=== PATIENT | female | born 1985 | race Hispanic/Latino ===

== ENCOUNTER 2016-06-21 13:18 | Emergency (ER) | payer SELFPAY ==
[2016-06-21 13:31] VITALS: BP 114/78; PULSE 68; RESP 16; TEMP 98; O2SAT 100
--- NOTE | 2016-06-21 13:44 | ED PDOC ---
Lower Extremity Pain/Injury Time Seen by Provider: 06/21/16 13:41 Chief Complaint (Nursing): Lower Extremity Problem/Injury Chief Complaint (Provider): Left Knee Pain History Per: Patient History/Exam Limitations: no limitations Onset/Duration Of Symptoms: Days (x2) Current Symptoms Are (Timing): Still Present Severity: Mild Additional Complaint(s): Patient is a 30 year old female, who was diagnosed with left knee cellulitis 2 days ago, presents to the ED complaining of worsening left knee pain. Patient was started on Bactrim and Kelflex with no relief. Patient was referred to the ED by Morgan WILKINSON just prior to arrival. Denies fever or chills. PMD: none Past Medical History Reviewed: Historical Data, Nursing Documentation, Vital Signs Vital Signs: Last Vital Signs Temp 98.0 F 06/21/16 13:27 Pulse 68 06/21/16 13:27 Resp 16 06/21/16 13:27 BP 114/78 06/21/16 13:27 Pulse Ox 100 06/21/16 13:27 - Medical History PMH: No Chronic Diseases - Surgical History Surgical History: No Surg Hx - Family History Family History: States: No Known Family Hx - Home Medications Home Medications: Ambulatory Orders Medication Instructions Recorded Clindamycin [Cleocin] 300 mg PO TID #30 cap 06/21/16 Doxycycline Hyclate 100 mg PO Q12 #20 tab 06/21/16 - Allergies Allergies/Adverse Reactions: Allergies Allergy/AdvReac Type Severity Reaction Status Date / Time No Known Allergies Allergy Verified 06/21/16 13:31 Review of Systems ROS Statement: Except As Marked, All Systems Reviewed And Found Negative Constitutional: Negative for: Fever, Chills Musculoskeletal: Positive for: Other (left knee pain) Physical Exam - Reviewed Nursing Documentation Reviewed: Yes Vital Signs Reviewed: Yes - Physical Exam Appears: Positive for: Well, Non-toxic, No Acute Distress Head Exam: Positive for: ATRAUMATIC, NORMAL INSPECTION, NORMOCEPHALIC Skin: Positive for: Normal Color, Warm, DRY Eye Exam: Positive for: EOMI, Normal appearance, PERRL Neck: Positive for: Normal, Painless ROM Cardiovascular/Chest: Positive for: Regular Rate, Rhythm. Negative for: Gallop , Murmur Respiratory: Positive for: Normal Breath Sounds. Negative for: Accessory Muscle Use, Rhonchi, Respiratory Distress Pulses-Dorsalis Pedis (L): 2+ Pulses-Post. Tibialis (L): 2+ Extremity: Positive for: Normal ROM, Tenderness (throughout left knee), Swelling (to left knee ), Other (+effusion, steaking, warmth, and erythema to the left knee +old healing abrasion) Neurologic/Psych: Positive for: Alert, Oriented - Laboratory Results Result Diagrams: 06/21/16 14:15 06/21/16 14:15 - ECG O2 Sat by Pulse Oximetry: 100 Medical Decision Making Medical Decision Making: Time: 13:45 Impression: 30 y/o female with left knee cellulites Plan: Blood work-cbc/cmp/UA/lyme titer CT left knee to r/o bony injury and/or other disease processes Pt with only slightly elevated WBC. CT shows no acute disease process at this time. Pt without relief from bactrim and keflex,-failing outpt tx however at this time due to pt symptoms worsening will change bactrim to cleocin and given IV cleocin in ED 300mg. pt advised strongly to monitor with pmd. Lyme study placed-pt req. abx for lyme in case its positive. pt advised strongly to consumer only if with positive results otherwise disregard the Rx and to be understanding of the SE of various abx in the system and it metabolizing. pt provides understanding. Scribe Attestation: Documented by Purvi Yang acting as a scribe for JOSIE Young. Provider Attestation: All medical record entries made by the Scribe were at my direction and personally dictated by me. I have reviewed the chart and agree that the record accurately reflects my personal performance of the history, physical exam, medical decision making, and the department course for this patient. I have also personally directed, reviewed, and agree with the discharge instructions and disposition. Disposition - Clinical Impression Clinical Impression: Cellulitis - Patient ED Disposition Is Patient to be Admitted: No Counseled Patient/Family Regarding: Studies Performed, Diagnosis, Need For Followup, Rx Given - Disposition Referrals: [facility] [Outside] Disposition: Routine/Home Disposition Time: 16:37 Condition: STABLE Additional Instructions: please wait for result of lyme test to take doxycycline for lyme disease. if you are positive please do not consume. Prescriptions: Clindamycin [Cleocin] 300 mg PO TID #30 cap Doxycycline Hyclate 100 mg PO Q12 #20 tab Instructions: Cellulitis (ED), Lyme Disease (ED)
[2016-06-21 14:27] LABS: BASO % 0.3 % (0.0-2.0); EOS % 0.2 % (0.0-4.0); LYMPH # 1.5 K/uL (1.0-4.3); LYMPH % 11.5 % (20.0-40.0); MEAN CELL VOLUME 94.5 fl (81.0-99.0); MEAN CORPUSCULAR HEMOGLOBIN 32.2 pg (27.0-31.0); MEAN CORPUSCULAR HGB CONC 34.1 g/dL (33.0-37.0); MEAN PLATELET VOLUME 8.6 fl (7.2-11.7); MONO # 0.7 K/uL (0.0-0.8); MONO % 5.8 % (0.0-10.0); NEUT # 10.4 K/uL (1.8-7.0); NEUT % 82.2 % (50.0-75.0); RED CELL DISTRIBUTION WIDTH 12.2 % (11.5-14.5); WHITE BLOOD COUNT 12.6 K/uL (4.8-10.8)
[2016-06-21 14:31] LABS: GRANULAR CAST 1 /lpf (0-1); RBC URINE 418 /hpf (0-3); URINE BILIRUBIN NEGATIVE (NEGATIVE); URINE BLOOD MODERATE (NEGATIVE); URINE COLOR AMBER (YELLOW); URINE GLUCOSE (UA) NEG (Normal); URINE KETONE 20 mg/dL (NEGATIVE); URINE LEUKOCYTE ESTERASE NEG Leu/uL (Negative); URINE PROTEIN 30 mg/dL (NEGATIVE); WBC URINE 3 /hpf (0-5)
[2016-06-21 14:33] LABS: ALB/GLOB RATIO 1.4 (1.0-2.1); ALKALINE PHOSPHATASE 63 U/L (38-126); ALT/SGPT 31 U/L (9-52); AST/SGOT 27 U/L (14-36); BLOOD UREA NITROGEN 11 mg/dl (7-17); CALCIUM 9.4 mg/dL (8.4-10.2); CARBON DIOXIDE 24 mmol/L (22-30); CHLORIDE 102 mmol/L (98-107); GFR AFRICAN-AMERICAN > 60; GLUCOSE,RANDOM 132 mg/dL (65-105); SODIUM 142 mmol/l (132-148); TOTAL PROTEIN 7.6 G/DL (6.3-8.2)
[2016-06-21] MEDS ORDERED: Clindamycin 300 MG in Sodium Chloride 0.9% 50 ML IVPB STA (15:37)
--- NOTE | 2016-06-21 15:39 | CT ---
CT of the knee without intravenous contrast History: Knee pain. No trauma according to the emergency room PA. Comparison: None. Technique: Computed tomography images of both knees were obtained. Sagittal and coronal reformations of the left knee were obtained in bone and soft tissue windows. This CT was performed using one or more of the following dose reduction techniques: Automated exposure control, adjustment of the mA and/or KV according to patient size, and/or use of iterative reconstruction technique. Radiation dose: 270.45 mGy-cm Findings: Right knee: Transverse images the right knee demonstrates no evidence of fracture. No significant joint effusion. Minimal induration of the soft tissue anterior to the patella. Left knee: Transverse images of the left knee demonstrates no evidence of fracture. No patellar dislocation. Thickening of the anterior soft tissues of the knee with extensive stranding noted. The soft tissue stranding extends caudally anterior to the patella tendon. The patellar tendon appears relatively intact (although CT is not the optimal modality to evaluate for tendon pathology). No organized fluid collection identified. Minimal joint effusion. Punctate calcific/ossific density noted superior to the patella. This could be sequela of prior injury. Impression: No evidence of fracture. Thickening of the anterior soft tissues of the left knee with extensive inflammatory stranding noted. Soft tissue stranding extends caudally anterior to the patellar tendon. No organized fluid collection. Minimal joint effusion. Punctate ossific/calcific density noted superior to the left patella. This could be sequelae of prior injury. Findings were discussed with JOSIE Chadwick in the emergency room at approximately 3:40 p.m. on 06/21/2016.
[2016-06-23 12:46] LABS: 18 KD (IGG) BAND Nonreactive (()); 23 KD (IGG) BAND Nonreactive (()); 23 KD (IGM) BAND Nonreactive (()); 28 KD (IGG) BAND Nonreactive (()); 30 KD (IGG) BAND Nonreactive (()); 39 KD (IGG) BAND Nonreactive (()); 39 KD (IGM) BAND Nonreactive (()); 41 KD (IGG) BAND Reactive (()); 41 KD (IGM) BAND Reactive (()); 45 KD (IGG) BAND Nonreactive (()); 58 KD (IGG) BAND Nonreactive (()); 66 KD (IGG) BAND Nonreactive (()); 93 KD (IGG) BAND Nonreactive (()); LYME DISEASE INTERP (IGG) Negative (Negative)
[2016-06-24 07:32] LABS: LYME DISEASE SCREEN <0.90 index (())
== END 2016-06-21 17:12 | disposition home or self-care (01) ==
LOC: H.ER 13:18
DX: M25.562 Pain in left knee (principal); L03.90 Cellulitis, unspecified